=== PATIENT | male | born 1945 | race Hispanic/Latino ===

== ENCOUNTER 2022-01-24 16:36 | Emergency (ER) | payer OTHER ==
--- OUTSIDE RECORDS SUMMARY | 2022-01-24 16:40 | XMS REPORT | Continuity of Care Document ---
:1945 Author Organization [facility] t Address [address] [place] [address] Care Team Providers Name Role Phone Unavailable Unavailable Unavailable Payers Payer Name Policy Type Policy Number Effective Date Expiration Date S ource Problems This patient has no known problems. Allergies, Adverse Reactions, Alerts Allergy Allergy Status Severity Reaction(s) Onset Inactive Treating Comm ents Source Name Type Date Date Clinician No Known DA Active U [facility] [facility] 00:00: d 00 [facility] Medications This patient has no known medications. Procedures This patient has no known procedures. Results Test Description Test Time Test Comments Results Result Comments Source SURG 2018-07-19 16:46:00 RUN DATE: 07/19/18 [facility] - LAB *LIVE* PAGE 1 RUN TIME: 1646 Specimen Inquiry RUN USER: INTERFACE PATIENT: ORLY HAM LOC: SYDNI U #: [id number] AGE/SX: 72/M ROOM: RE07/16/18[facility] DR: Ismael Ulrich MD : 49 BED: DIS: STATUS: [facility] TLOC: SPEC #: [id number] RECD: 07/16/18 STATUS: [facility] REQ #: [id number] MARIAELENA: 07/16/[address] [facility] [address]: Ismael Ulrich MD ENTERED: 07/16/18 SP TYPE: SURG OTHR DR: Oliver Heck DO ORDERED: SURG PATH LVL 4 [place]: [place] [address] [address] [place] [address] [email or web address] Oliver Heck DO [address] [place] [address] HISTOLOGY: TISSUE ID BLK PCS CARRIE LEV PROCEDURE DISPOSITION ____ ___ ___ ___ PROSTATE, NOS A PROCEDURES: SURG PATH LVL 4 (07/16/18) TISSUES: A. PROSTATE, NOS - PROSTATE CHIPS CLINICAL HISTORY BLADDER NECK OBSTRUCTION-N32.0 CPT CODES CPT CODE(S): 80357 , , , , , , FINAL DIAGNOSIS Prostate, transurethral resection: CHRONIC INFLAMMATION INVOLVING PROSTATIC GLANDS AND STROMA BENIGN PROSTATIC HYPERPLASIA (BPH) GROSS DESCRIPTION Prostate chips. Received in formalin are multiple fragments of walls-brown fibrous tissue, 4.2 x 2.5 x 0.4 cm in aggregate and weighs 1.7 grams. The entire specimen submitted as A1 and A2. /ba/pdb CONTINUED ON NEXT PAGE RUN DATE: 07/19/18 [facility] - LAB *LIVE* PAGE 2 RUN TIME: 1645 Specimen Inquiry RUN USER: INTERFACE SPEC #: [facility]:[id number] PATIENT: ORLY HAM #[id number] (Continued)--------- --- GROSS DESCRIPTION (Continued) Grossing performed at [facility] Pathology, [address], [address], [place], [place] [address]. Construction Pit Worker: Vladislav Webber M.D. MICROSCOPIC DESCRIPTION Prostate chips. Sections there is a prosthetic tissue. The posterior tissue demonstrates glands and stroma. Focal areas demonstrate nodular prominent glands. Areas of increased chronic inflammation along prostatic glands and stroma are also identified. No evidence of carcinoma or high-grade PIN is identified.--------- --- Signed SIGNATURE ON FILE Junior Maldonado 07/19/18 1646 END OF REPORT
[2022-01-24] MEDS ORDERED: TETANUS & DIPHTHERIA TOX,ADULT 0.5 ML VIAL ONE (18:00)
--- NOTE | 2022-01-24 19:31 | RAD REPORT ---
EXAM DESCRIPTION: CT - Head C Spine Mpr Wo Con - 01/24/2022 7:15 pm CLINICAL HISTORY: Head and neck injury status post fall. Head and neck pain COMPARISON: None. TECHNIQUE: Computed axial tomography of the head and cervical spine was obtained. Sagittal and coronal reconstruction was performed. All CT scans are performed using dose optimization technique as appropriate and may include automated exposure control or mA/KV adjustment according to patient size. FINDINGS: Posterior scalp laceration An intracranial bleed is not seen. The ventricles are normal in caliber. An extra-axial fluid collect ion is not noted.Fluid within the visualized sinuses and mastoids is not seen A cervical fracture is not visualized. No dislocation is noted. IMPRESSION: No acute intracranial abnormality is seen. A cervical fracture is not visualized. If the patient continues to have symptoms to suggest intracra nial /spinal cord pathology then MRI would be recommended
--- NOTE | 2022-01-24 20:08 | EDPHYS ---
Physician Documentation [facility] Name: Gem Boone Age: 76 yrs Sex: Male : 1945 Arrival Date: 01/24/2022 Time: 16:48 Bed 10 Private MD: ED Physician Yovany Miguel HPI: 01/24 17:20 This 76 yrs old Male presents to ER via Ambulatory with complaints of jmm Laceration To Head. 20:04 The complaints affect the left side of the back of head and right side of the back of jmm head. Onset: The symptoms/episode began/occurred acutely, just prior to arrival. Associated signs and symptoms: Loss of consciousness: This patient did not experience any loss of consciousness. This is a 76-year-old male with a history of hypertension, diabetes mellitus the presents emergency department with a laceration to the back of his scalp. Patient states he fell backwards. Denies loss consciousness, vomiting.. Historical: - Allergies: 17:26 No Known Allergies; iw - PMHx: 17:26 Hypertensive disorder; Diabetes mellitus; iw ROS: 20:04 Constitutional: Negative for fever, chills, and weight loss, Cardiovascular: Negative jmm for chest pain, palpitations, and edema, Respiratory: Negative for shortness of breath, cough, wheezing, and pleuritic chest pain. 20:04 Neuro: Positive for headache. 20:04 All other systems are negative. Exam: 20:04 Constitutional: This is a well developed, well nourished patient who is awake, alert, jmm and in no acute distress. 20:04 Eyes: EOMI, no conjunctival erythema appreciated ENT: Moist Mucus Membranes Neck: Trachea midline, Supple Chest/axilla: Normal chest wall appearance and motion. Cardiovascular: Regular rate and rhythm. No edema appreciated Respiratory: Normal respirations, no respiratory distress appreciated Abdomen/GI: Non distended, soft Back: Normal ROM Skin: General appearance color normal MS/ Extremity: Moves all extremities, no obvious deformities appreciated, no edema noted to the lower extremities Neuro: Awake and alert Psych: Behavior is normal, Mood is normal, Patient is cooperative and pleasant 20:04 Head/face: 2 cm laceration noted to the back of the skull.. Vital Signs: 17:27 BP 151 / 71; Pulse 78; Resp 16; Temp 98.0; Pulse Ox 98% on R/A; iw Laceration: 20:06 Wound Repair of 2cm ( 0.8in ) subcutaneous laceration to scalp. Distal jmm neuro/vascular/tendon intact. Wound prep: Simple cleansing by me. Skin closed with 4 1-0 [place] using staple gun. Patient tolerated well. MDM: 17:20 Patient medically screened. [facility] 20:05 Data reviewed: vital signs, nurses notes. Counseling: I had a detailed discussion with sandra the patient and/or guardian regarding: the historical points, exam findings, and any diagnostic results supporting the discharge/admit diagnosis, radiology results, the need for outpatient follow up, to return to the emergency department if symptoms worsen or persist or if there are any questions or concerns that arise at home. ED course: Patient is alert nontoxic in appearance in the ED. CT negative. Given head injury return precautions. Patient understood agrees plan of care.. 01/24 17:42 Order name: CT Head C Spine; Complete Time: 19:34 [facility] Administered Medications: 17:59 Drug: Tetanus-Diphtheria Toxoid Adult 0.5 ml {Sign Language Instructor: No Chains. Exp: 02/15/2022. Lot #: [id number]. } Route: IM; Site: right deltoid; 20:14 Follow up: Response: No adverse reaction 4 20:22 Drug: HYDROcodone-acetaminophen 5 mg-325 mg 1 tabs Route: PO; jb4 20:23 Follow up: Response: Medication administered at discharge. jb4 Disposition Summary: 01/24/22 20:07 Discharge Ordered Location: Home [facility] Condition: Stable [facility] Diagnosis - Unspecified injury of head, initial encounter [facility] - Scalp laceration [facility] Followup: [facility] - With: Private Physician - When: 1 week - Reason: Recheck today's complaints, Continuance of care, Staple/Suture removal, Re-evaluation by your physician Discharge Instructions: - Discharge Summary Sheet [facility] - Head Injury, Adult [facility] - Facial Laceration [facility] Forms: - Medication Reconciliation Form [facility] - Thank You Letter [facility] - Antibiotic Education [facility] - Prescription Opioid Use [facility] Signatures: Dispatcher [employer] Yovany Parry MD MD cha Mickail, Joel, PA PA jmm Williams, Irene, RN RN Scooter, Eddie, RN RN jb4
--- NOTE | 2022-01-24 20:08 | ER ---
Nurse's Notes [facility] Name: Gem Boone Age: 76 yrs Sex: Male : 1945 Arrival Date: 01/24/2022 Time: 16:48 Bed 10 Private MD: Diagnosis: Unspecified injury of head, initial encounter;Scalp laceration Presentation: 01/24 17:20 Chief complaint: Spouse and/or significant other states: was pulling something and fell iw backward , laceration to back of head , denies LOC, not on blood thinners. Coronavirus screen: At this time, the client does not indicate any symptoms associated with coronavirus-19. Ebola Screen: Patient negative for fever greater than or equal to 101.5 degrees Fahrenheit, and additional compatible Ebola Virus Disease symptoms Patient denies exposure to infectious person. Patient denies travel to an Ebola-affected area in the 21 days before illness onset. No symptoms or risks identified at this time. Complicating Factors: There are no complicating factors for this patient. Initial Sepsis Screen: Does the patient meet any 2 criteria? No. Patient's initial sepsis screen is negative. Does the patient have a suspected source of infection? No. Patient's initial sepsis screen is negative. Risk Assessment: Do you want to hurt yourself or someone else? Patient reports no desire to harm self or others. Onset of symptoms was January 24, 2022. 17:20 Method Of Arrival: Ambulatory iw 17:20 Acuity: RICK 4 iw Historical: - Allergies: 17:26 No Known Allergies; iw - PMHx: 17:26 Hypertensive disorder; Diabetes mellitus; iw Screenin:02 Abuse screen: Denies threats or abuse. Denies injuries from another. Nutritional iw screening: No deficits noted. Tuberculosis screening: No symptoms or risk factors identified. Fall Risk None identified. Assessment: 18:01 General: Appears in no apparent distress. Behavior is calm, cooperative. Pain: iw Complains of pain in back of head. Neuro: Level of Consciousness is awake, alert, obeys commands, Oriented to person, place, time, situation, Moves all extremities. Full function. Respiratory: Respiratory effort is even, unlabored, Respiratory pattern is regular, symmetrical. Derm: Skin is healthy with good turgor. Musculoskeletal: Range of motion: intact in all extremities. Injury Description: Laceration sustained to back of head is jagged, 0.5 to 2.5 cm long. 20:23 Reassessment: Patient appears in no apparent distress at this time. Patient and/or jb4 family updated on plan of care and expected duration. Pain level reassessed. Patient is alert, oriented x 3, equal unlabored respirations, skin warm/dry/pink. Vital Signs: 17:27 BP 151 / 71; Pulse 78; Resp 16; Temp 98.0; Pulse Ox 98% on R/A; iw ED Course: 16:48 Patient arrived in ED. kz 16:50 Zhao Cabello PA is PHCP. [facility] 16:50 Yovany Miguel MD is Attending Physician. [facility] 17:20 Elodia Locke, RN is Primary Nurse. iw 17:21 Triage completed. iw 17:27 Arm band placed on. iw 18:02 Patient did not have IV access during this emergency room visit. iw 19:16 CT Head C Spine In Process Unspecified. EDMS 20:23 Patient has correct armband on for positive identification. Bed in low position. Call jb4 light in reach. Side rails up X 1. 20:23 No provider procedures requiring assistance completed. jb4 Administered Medications: 17:59 Drug: Tetanus-Diphtheria Toxoid Adult 0.5 ml {Tarp Repairer: [employer]. Exp: 02/15/2022. Lot #: [id number]. } Route: IM; Site: right deltoid; 20:14 Follow up: Response: No adverse reaction [facility] 20:22 Drug: HYDROcodone-acetaminophen 5 mg-325 mg 1 tabs Route: PO; jb4 20:23 Follow up: Response: Medication administered at discharge. [facility] Outcome: 20:07 Discharge ordered by . [facility] 20:23 Discharged to home ambulatory, with family. jb4 20:23 Condition: stable 20:23 Discharge instructions given to patient, Instructed on discharge instructions, follow up and referral plans. Demonstrated understanding of instructions, follow-up care. 20:24 Patient left the ED. jb Signatures: Dispatcher [employer] EDMS Zhao Cabello PA PA jmm Williams, Irene, RN SHANNON Eddie Helms RN RN [facility] Elizabeth Neal Corrections: (The following items were deleted from the chart) 17:26 17:20 Chief complaint: Spouse and/or significant other states: was pulling something iw and fell backward , laceration to back of head , denies LOC iw
[2022-01-24] MEDS ORDERED: HYDROCODONE/APAP 5/325 MG TAB ONE (20:22)
[2022-01-24 20:28] VITALS: BP 151/71; TEMP 98; O2SAT 98
== END 2022-01-24 20:24 | disposition home or self-care (01) ==
LOC: ER 16:36
PROC: 0JQ00ZZ Repair Scalp Subcutaneous Tissue and Fascia, Open Approach (ICD-10-PCS; principal; 2022-01-24)
DX: S01.01XA Laceration without foreign body of scalp, initial encounter (principal); S09.90XA Unspecified injury of head, initial encounter; W18.30XA Fall on same level, unspecified, initial encounter; E11.9 Type 2 diabetes mellitus without complications; I10 Essential (primary) hypertension; Z23 Encounter for immunization
CPT/HCPCS: 70450; 72125; 90471; 90714; 99283

== ENCOUNTER 2022-02-03 11:49 | Emergency (ER) | payer OTHER ==
--- OUTSIDE RECORDS SUMMARY | 2022-02-03 11:51 | XMS REPORT | Continuity of Care Document ---
:1945 Author Organization [facility] t Address [address] [place] [address] Care Team Providers Name Role Phone Unavailable Unavailable Unavailable Payers Payer Name Policy Type Policy Number Effective Date Expiration Date S ource Problems This patient has no known problems. Allergies, Adverse Reactions, Alerts Allergy Allergy Status Severity Reaction(s) Onset Inactive Treating Comm ents Source Name Type Date Date Clinician No Known DA Active U [facility] Medications This patient has no known medications. Procedures This patient has no known procedures. Results Test Description Test Time Test Comments Results Result Comments Source SURG 2018-07-19 16:46:00 RUN DATE: 07/19/18 [facility] - LAB *LIVE* PAGE 1 RUN TIME: 1646 Specimen Inquiry RUN USER: INTERFACE PATIENT: ROLY HAM LOC: SYDNI U #: [id number] AGE/SX: 72/M ROOM: RE07/16/18[facility] DR: Ismael Ulrich MD : [birth year] BED: DIS: STATUS: [facility] TLOC: SPEC #: [id number] RECD: 07/16/18 STATUS: [facility] REQ #: [id number] MARIAELENA: 07/16/[address] [facility] [address]: Ismael Ulrich MD ENTERED: 07/16/18 SP TYPE: SURG OTHR DR: Oliver Heck DO ORDERED: SURG PATH LVL 4 [place]: [place] [address] [address] [place] [address] [email or web address] Oliver Heck DO [address] [place] [address] HISTOLOGY: TISSUE ID BLK PCS CARRIE LEV PROCEDURE DISPOSITION ____ ___ ___ ___ PROSTATE, NOS A PROCEDURES: SURG PATH LVL 4 (07/16/18) TISSUES: A. PROSTATE, NOS - PROSTATE CHIPS CLINICAL HISTORY BLADDER NECK OBSTRUCTION-N32.0 CPT CODES CPT CODE(S): 95624 , , , , , , FINAL [...] CONTINUED ON NEXT PAGE RUN DATE: 07/19/18 [facility] - LAB *LIVE* PAGE 2 RUN TIME: 1645 Specimen Inquiry RUN USER: INTERFACE SPEC #: [facility]:[id number] PATIENT: ORLY HAM #[id number] (Continued)--------- --- GROSS DESCRIPTION (Continued) Grossing performed at [facility] Pathology, [address], [address], [place], [place] [address]. Electric Deicer Inspector: Vladislav Webber M.D. MICROSCOPIC DESCRIPTION Prostate chips. [...]
--- NOTE | 2022-02-03 12:59 | ER ---
Nurse's Notes [facility] Name: John Boone Age: 76 yrs Sex: Male : 1945 Arrival Date: 02/03/2022 Time: 11:51 Bed 10 Private MD: Diagnosis: Encounter for Suture or Staple removal Presentation: 02/03 12:08 Chief complaint: Patient states: here for suture removal. Initial Sepsis Screen: Does vg1 the patient meet any 2 criteria? No. Patient's initial sepsis screen is negative. Does the patient have a suspected source of infection? No. Patient's initial sepsis screen is negative. Risk Assessment: Do you want to hurt yourself or someone else? Patient reports no desire to harm self or others. Onset of symptoms was February 03, 2022. 12:08 Method Of Arrival: Ambulatory vg1 12:08 Acuity: RICK 5 vg1 13:07 Coronavirus screen: At this time, the client does not indicate any symptoms associated ap3 with coronavirus-19. Ebola Screen: No symptoms or risks identified at this time. Triage Assessment: 12:09 General: Appears comfortable, Behavior is calm, cooperative. Pain: Denies pain. vg1 Historical: - Allergies: 12:09 No Known Allergies; vg1 - PMHx: 12:09 diabetes mellitus; Hypertensive disorder; vg1 - Immunization history:: Client reports receiving the 2nd dose of the Covid vaccine. - Social history:: Smoking status: Patient denies any tobacco usage or history of. Screenin:07 Abuse screen: Denies threats or abuse. Nutritional screening: No deficits noted. ap3 Tuberculosis screening: No symptoms or risk factors identified. Fall Risk None identified. Vital Signs: 12:08 BP 142 / 76; Pulse 64; Resp 16; Temp 98.5(TE); Pulse Ox 100% ; vg1 ED Course: 11:51 Patient arrived in ED. ds1 12:07 Zhao Cabello PA is PHCP. jmm 12:07 Abhijit Gaines MD is Attending Physician. jmm 12:09 Triage completed. vg1 12:09 Arm band placed on. vg1 12:11 Elidia Pride, SHANNON is Primary Nurse. ap3 13:07 staple removal. ap3 13:08 Patient has correct armband on for positive identification. Call light in reach. Adult ap3 w/ patient. 13:08 Patient did not have IV access during this emergency room visit. ap3 Administered Medications: No medications were administered Outcome: 12:59 Discharge ordered by . sandra 13:07 Discharged to home ambulatory, with family. ap3 13:07 Condition: good 13:07 Discharge instructions given to patient, family, Instructed on discharge instructions, follow up and referral plans. wound care, Demonstrated understanding of instructions, follow-up care, wound care. 13:08 Patient left the ED. ap3 Signatures: Zhao Cabello PA PA jmm Sanford, Demi ds1 Eldiia Pride RN RN ap3 Miesha Yang RN RN vg1
--- NOTE | 2022-02-03 12:59 | EDPHYS ---
Physician Documentation [facility] Name: John Boone Age: 76 yrs Sex: Male : 1945 Arrival Date: 02/03/2022 Time: 11:51 Bed 10 Private MD: ED Physician Abhijit Gaines HPI: 02/03 12:39 This 76 yrs old Male presents to ER via Ambulatory with complaints of Suture jmm Recheck. 12:39 Patient presents to ED for recheck of: laceration. The affected area is on the scalp. jmm Progress: The patient reports excellent improvement in the affected area. There has been resolution, improvement, or non-development of any drainage, fever, pain, redness or swelling. It is unknown whether or not the patient has had similar symptoms in the past. Historical: - Allergies: 12:09 No Known Allergies; vg1 - PMHx: 12:09 diabetes mellitus; Hypertensive disorder; vg1 - Immunization history:: Client reports receiving the 2nd dose of the Covid vaccine. - Social history:: Smoking status: Patient denies any tobacco usage or history of. ROS: 12:39 Constitutional: Negative for fever, chills, and weight loss, Cardiovascular: Negative jmm for chest pain, palpitations, and edema, Respiratory: Negative for shortness of breath, cough, wheezing, and pleuritic chest pain. 12:39 Skin: Positive for laceration(s). 12:39 All other systems are negative. Exam: 12:39 Constitutional: This is a well developed, well nourished patient who is awake, alert, jmm and in no acute distress. 12:39 Eyes: EOMI, no conjunctival erythema appreciated ENT: Moist Mucus Membranes Neck: Trachea midline, Supple Chest/axilla: Normal chest wall appearance and motion. Cardiovascular: Regular rate and rhythm. No edema appreciated Respiratory: Normal respirations, no respiratory distress appreciated Abdomen/GI: Non distended, soft Back: Normal ROM 12:39 Neuro: Awake and alert Psych: Behavior is normal, Mood is normal, Patient is cooperative and pleasant 12:39 Head/face: healing laceration noted to the scalp. 12:39 Skin: healing laceration noted to the scalp. Vital Signs: 12:08 BP 142 / 76; Pulse 64; Resp 16; Temp 98.5(TE); Pulse Ox 100% ; vg1 MDM: 12:39 Patient medically screened. [facility] 12:58 Data reviewed: vital signs, nurses notes. Counseling: I had a detailed discussion with [facility] the patient and/or guardian regarding: the historical points, exam findings, and any diagnostic results supporting the discharge/admit diagnosis, the need for outpatient follow up, to return to the emergency department if symptoms worsen or persist or if there are any questions or concerns that arise at home. Administered Medications: No medications were administered Disposition: 18:49 Co-signature as Attending Physician, Abhijit Gaines MD. rn Disposition Summary: 02/03/22 12:59 Discharge Ordered Location: Home [facility] Condition: Stable [facility] Diagnosis - Encounter for Suture or Staple removal [facility] Followup: [facility] - With: Private Physician - When: 2 - 3 days - Reason: Recheck today's complaints, Continuance of care, Re-evaluation by your physician Discharge Instructions: - Discharge Summary Sheet [facility] - Suture Removal, Care After [facility] Forms: - Medication Reconciliation Form [facility] - Thank You Letter [facility] - Antibiotic Education [facility] - Prescription Opioid Use [facility] Signatures: Zhao Cabello PA PA Abhijit Ngo MD MD rn Miesha Yang RN RN vg1
== END 2022-02-03 13:08 | disposition home or self-care (01) ==
LOC: ER 11:49
DX: Z48.02 Encounter for removal of sutures (principal)
CPT/HCPCS: 99281